=== PATIENT | female | born 1995 | race Caucasian/White ===

== ENCOUNTER 2021-10-30 17:45 | Inpatient (IN) ==
[2021-10-30 18:54] LABS: Hematocrit (blood only) 37.2 % (37-47); Hemoglobin 12.8 g/dL (12.0-16.0); Mean Corpuscular Hemoglobin 30.2 pg (25-34); Mean Corpuscular Volume 87.7 fL (80-100); Mean Platelet Volume 10.7 fL (7.4-10.4); Platelet Count 237 K/uL (130-400); RDW Coefficient of Variation 13.4 % (11.5-14.5); RDW Standard Deviation 42.6 fL (36.4-46.3); Red Blood Count 4.24 M/uL (4.2-5.4); White Blood Count 13.62 K/uL (4.8-10.8)
[2021-10-30 19:17] LABS: Est GFR (African American) 141.7 ml/min; Est GFR (Non-African American) 122.3 ml/min
[2021-10-30] MEDS ORDERED: OXYTOCIN 30 UNITS/500 ML BAG IV PRN ×2 (19:25→19:29)
[2021-10-30 19:36] LABS: Mean Corpuscular Hgb Conc 34.4 g/dL (32-36)
--- NOTE | 2021-10-30 19:36 | History & Physical Report ---
Date of Service October 30, 2021 Assessment & Plan (1) Supervision of normal intrauterine in primigravida: (2) Gestational HTN: Plan: 25-year-old at 39 weeks 2 days gestational age. induction labor for gestational hypertension diagnosed today 1. Fetus: Cat 1 2. Labor: Will place cervical naik. Pitocin per regular protocol 3. GBS negative 4. gHTN. Negative eval for preeclampsia. Will continue to monitor. 5. Hx of PE: SCDs in labor. Restart Lovenox 12-24 hours post delivery and continue for 6 weeks History of Present Illness Primary Care Provider: Silvana Delaney MD 25-year-old at 39w2d gestational age presents for decreased movement. During her evaluation for decreased movement there was noted be reactive NST however blood pressures were noted to be elevated initially in severe range then trended down to a mild range blood pressure elevation. Preeclampsia labs were negative patient denying any preeclampsia symptoms. Discussed the findings of elevated blood pressure at term and recommended the patient stay for induction of labor for gestational hypertension. Patient was agreeable to plan. otherwise complicated by history of pulmonary embolus on OCPs. Patient is planned to continue Lovenox for 6 weeks and has been on heparin since 36 weeks with last dose this morning at 7:00 a.m. OB Labs: Blood Type O Negative 03/30/21 Antibody Screen NEGATIVE 08/18/21 Hemoglobin 13.0 g/dL (12.0-16.0) 09/29/21 Hematocrit 37.7 % (37-47) 09/29/21 Mean Corpuscular Volume 87.5 fL (80-100) 09/29/21 Platelet Count 284 K/uL (130-400) 09/29/21 Rubella IgG Antibody Immune (Immune) 03/30/21 Rapid Plasma Reagin Nonreactive (Nonreactive) 03/30/21 Hepatitis B Surface Antigen Neg (Neg) 03/30/21 HIV (1&2) Ab and P24 Ag, 4th Gener Neg (Neg) 03/30/21 Glucose 1 Hour 50 gm Load 158 mg/dl (70-130) H 06/02/21 Maternal Serum Alpha Fetoprotein 45.2 ng/mL 06/02/21 OB Optional Labs: Chlamydia trachomatis RNA NOT DETECTED (NOT DETECTED) 03/30/21 Neisseria gonorrhoeae RNA NOT DETECTED (NOT DETECTED) 03/30/21 Thyroid Stimulating Hormone (TSH) 0.921 uIu/ml (0.300-4.500) 04/06/20 Alpha Fetoprotein Triple Screen SEE NOTE 06/02/21 Labs Reviewed: neg cf/sma--[facility] low risk panorama--[facility] Allergies Allergy/AdvReac Type Severity Reaction Status Date / Time Estrogens Allergy Verified 10/27/21 15:05 Home Medications Medication Instructions Recorded Confirmed Type prenat.vits,brayden,[id number] 1 tab PO DAILY 03/21/21 10/30/21 History aspirin 81 mg tablet,delayed 81 mg PO DAILY 08/18/21 10/30/21 History release heparin (porcine) 5,000 unit/mL 5,000 unit SUBCUT Q12H 10/13/21 10/30/21 History injection solution Patient History Medical History (Updated 10/30/21 @ 20:25 by Francisco Javier Peña MD) ACL tear Reconstruction of left. Asthma COVID 05/16/21 Hypertension affecting Infertility Conceived on Metformin and Femara Irregular heart beat Pulmonary embolism 2019 Lovenox 13-35 weeks Heparin 35 weeks to currently Family History (Updated 03/21/21 @ 10:03 by Shannan Carias) Mother Cancer Grandmother (Maternal) Cancer Grandfather (Maternal) Cancer Social History (Updated 10/30/21 @ 18:02 by Beth Aburto, RN) Smoking Status: Never smoker Hx Alcohol Use: No Hx Substance Use: No Preferred Language: [place] Communication Ability: Effective Visual Impairment: No Limitations Switchboard Clerk Required: No Beliefs That Will Affect Care: None marital status: marital status details: Sarkis (25) [phone] Current Living Situation: Spouse Current Living Situation Comment: lives with spouse 2 dogs. current occupational status: employed current occupation: [employer] Other Information That Helps Us Care for You: No Feels Safe at Home: Yes Safety Concerns: Feels Safe At This Time Assistive Devices: None Physical Exam Genitourinary: OB Exam Abdomen: + vertex (By US) Manual OB Exam: + cervical dilation fingertip, + cervical effacement 50% and + station high OB Exam Monitor Tracing: + external FHT monitor used, + external uterine monitor used, + category I and + normal FHT variability; no early decelerations present, no late decelerations present and no variable decelerations Results & Data ([facility]) Vital Signs (Past 12 Hours) Vital Signs Temp Pulse Resp BP 10/30/21 18:59 36.7 C 105 H 20 145/98 H 10/30/21 18:28 108 H 144/92 H 10/30/21 18:18 102 H 160/91 H 10/30/21 18:12 100 H 18 166/87 H 10/30/21 18:06 36.8 C 102 H 18 166/96 H 10/30/21 18:03 18 10/30/21 17:55 113 H 20 185/110 H Coding Level of Care Code None Diagnoses Supervision of normal intrauterine in primigravida Z34.00 Gestational HTN O13.9
[2021-10-30 20:36] LABS: Protein Creatinine Ratio Urine 3.5 (0-0.2); Total Protein Urine Random 324.8 mg/dl (0-11.9)
[2021-10-30] MEDS: LACTATED RINGER'S 1,000 ML IV PRN (22:06)
[2021-10-30] MEDS: ACETAMINOPHEN 325 MG TAB PO PRN (22:11)
[2021-10-30] MEDS ORDERED: MAG SULFATE 4GM BOLUS FROM BAG IV ONE (23:57)
[2021-10-30] MEDS ORDERED: LABETALOL HCL IV 5 MG/ML 20ML IV STA (23:57)
[2021-10-31] MEDS: MAGNESIUM SULFATE / WTR 40 GM/1,000 ML BAG IV SCH ×2 (00:18→17:06)
[2021-10-31] MEDS ORDERED: ePHEDrine sulfate 50 MG/ML AMP ONE (02:07)
[2021-10-31] MEDS ORDERED: fentaNYL citrate 100 MCG/2 ML VIAL ONE (02:07)
[2021-10-31] MEDS ORDERED: fentaNYL 2MCG/ML ROPIVACAINE 1.25MG/ML 100 ML BAG EPI ONE (02:08)
[2021-10-31] MEDS ORDERED: SODIUM CHLORIDE 0.9% INJ 10 ML VIAL ONE (02:08)
[2021-10-31] MEDS ORDERED: BUPIVACAINE 0.25% 30 ML VIAL ONE (02:08)
--- NOTE | 2021-10-31 02:11 | Labor Progress Brief Note ---
Date of Service October 31, 2021 Subjective Reason For Note: Routine Evaluation Denies PIH symptoms Assessment & Plan (1) Supervision of normal intrauterine in primigravida: (2) Gestational HTN: (3) Pre-eclampsia, severe, third trimester: Plan: 25-year-old at 39 weeks 3 days gestational age. induction labor for gestational hypertension diagnosed today 1. Fetus: Cat 1 2. Labor: Progressing well. SROM for clr. Pitocin per regular protocol 3. GBS negative 4. Severe PreE by BP criteria. Started Mg. Labs in AM 5. Hx of PE: SCDs in labor. Restart Lovenox 12-24 hours post delivery and continue for 6 weeks Admission and Anticipated Discharge Date Admission Date: October 30, 2021 Physical Exam Genitourinary: Manual OB Exam: + cervical dilation 4 cm, + cervical effacement 70% and + station high OB Exam Monitor Tracing: + external FHT monitor used, + external uterine monitor used, + category I and + normal FHT variability Results & Data ([facility]) Vital Signs (Past 12 Hours) Vital Signs Temp Pulse Resp BP Pulse Ox 10/31/21 02:04 101 H 164/85 H 10/31/21 02:02 104 H 98 10/31/21 01:57 98 H 97 10/31/21 01:52 97 H 98 10/31/21 01:47 103 H 152/79 H 97 10/31/21 01:42 105 H 97 10/31/21 01:37 100 H 98 10/31/21 01:32 104 H 20 164/88 H 98 10/31/21 01:27 99 H 98 10/31/21 01:22 97 H 98 10/31/21 01:17 104 H 143/74 H 97 10/31/21 01:12 110 H 97 10/31/21 01:07 101 H 97 10/31/21 01:02 115 H 142/75 H 97 10/31/21 00:57 106 H 96 10/31/21 00:52 100 H 95 10/31/21 00:47 102 H 147/80 H 96 10/31/21 00:42 103 H 96 10/31/21 00:37 106 H 98 10/31/21 00:35 18 10/31/21 00:32 106 H 96 10/31/21 00:30 100 H 136/79 10/31/21 00:27 102 H 96 10/31/21 00:24 96 H 135/76 10/31/21 00:22 104 H 97 10/31/21 00:19 91 H 134/74 10/31/21 00:13 103 H 142/80 H 10/30/21 23:47 95 H 169/86 H 10/30/21 23:16 91 H 161/85 H 10/30/21 22:47 36.6 C 90 18 164/87 H 10/30/21 21:54 105 H 157/104 H 10/30/21 21:25 100 H 143/83 H 10/30/21 20:54 93 H 145/85 H 10/30/21 20:20 90 153/86 H 10/30/21 20:17 83 164/97 H 10/30/21 19:41 111 H 159/95 H 10/30/21 19:30 108 H 177/96 H 10/30/21 18:59 36.7 C 105 H 20 145/98 H 10/30/21 18:28 108 H 144/92 H 10/30/21 18:18 102 H 160/91 H 10/30/21 18:12 100 H 18 166/87 H 10/30/21 18:06 36.8 C 102 H 18 166/96 H 10/30/21 18:03 18 10/30/21 17:55 113 H 20 185/110 H Coding Level of Care Code None Diagnoses Supervision of normal intrauterine in primigravida Z34.00 Gestational HTN O13.9 Pre-eclampsia, severe, third trimester O14.13
[2021-10-31] MEDS ORDERED: ePHEDrine sulfate 50 MG/ML AMP IV PRN ×2 (02:59→19:59)
[2021-10-31] MEDS ORDERED: NALOXONE HCL 1 MG in SODIUM CHLORIDE 0.9% 1000ML 1,000 ML IV PRN ×2 (02:59→19:59)
[2021-10-31] MEDS ORDERED: diphenhydrAMINE 50 MG/ML VIAL IV PRN ×2 (02:59→19:59)
[2021-10-31] MEDS ORDERED: NALBUPHINE HCL INJ 10 MG/ML AMP IV PRN ×2 (02:59→19:59)
[2021-10-31] MEDS ORDERED: NALOXONE HCL 0.4 MG/1 ML VIAL/CARP IV PRN ×2 (02:59→19:59)
[2021-10-31] MEDS ORDERED: ONDANSETRON INJ 2 MG/ML 2 ML VIAL IV PRN ×2 (02:59→19:59)
--- NOTE | 2021-10-31 03:01 | Anesthesiology Consultation ---
Date of Service October 31, 2021 Assessment & Plan Chart Review Chart Review: Patient NOT seen in Pre Admission Testing and Acceptable Risk for Labor Epidural Consults Requested none ASA ASA3 Proposed Anesthesia Anesthesia Type: Labor Epidural and CSE Risk / Benefits Reviewed With: PT / POA / Parent / Guardian, Accepts Plan and Informed Consent Obtained History Surgery The patient last took heparin at 0730 on 10/30/2021. Height/Weight Height: 5 ft 3 in Weight: 106.141 kg Allergies Allergy/AdvReac Type Severity Reaction Status Date / Time Estrogens Allergy Verified 10/27/21 15:05 Medications Home Medications Medication Instructions Recorded Confirmed Last Taken prenat.vits,brayden,amp-qfjv-aaxft 1 tab PO DAILY 03/21/21 10/30/21 10/30/21 aspirin 81 mg tablet,delayed 81 mg PO DAILY 08/18/21 10/30/21 10/30/21 release heparin (porcine) 5,000 unit/mL 5,000 unit SUBCUT Q12H 10/13/21 10/30/21 10/30/21 07:30 injection solution Active Medications Generic Name Dose Route Start Last Admin Trade Name Freq PRN Reason Stop Dose Admin Acetaminophen 650 mg 10/30/21 18:26 10/30/21 22:11 Acetaminophen 325 Mg Tab PO 11/29/21 18:25 650 mg Q4H PRN Administration Pain or Fever Lactated Ringer's 1,000 mls @ 125 mls/hr 10/30/21 19:25 10/31/21 00:38 Lr IV 11/01/21 19:24 75 mls/hr .Q8H PRN Infusion L&D Protocol Protocol Oxytocin 30 units in 500 mls @ 10 mls/hr 10/30/21 19:29 10/31/21 01:20 Pitocin IV 11/01/21 19:28 0.6 units/hr .Q24H PRN 10 mls/hr Labor Induction/Augmentation Titration Protocol 0.6 UNITS/HR Magnesium Sulfate 40 gm in 1,000 mls @ 50 mls/hr 10/30/21 23:45 10/31/21 00:38 Magnesium Sulfate / Wtr IV 11/29/21 23:44 2 g/hr .Q20H HEVER 50 mls/hr Infusion 2 G/HR NPO Date Last Intake of Fluids: 10/31/21 Time Last Intake of Fluids: 02:00 Date Last Intake of Solids: 10/30/21 Time Last Intake of Solids: 14:00 Past Medical History Medical History ACL tear Reconstruction of left. Asthma COVID 05/16/21 Hypertension affecting Infertility Conceived on Metformin and Femara Irregular heart beat Pulmonary embolism 2019 Lovenox 13-35 weeks Heparin 35 weeks to currently Exercise / Class Metabolic Activity II 4-5 Yardwork/Stairs/Walk up hill Past Family History Family History Mother Cancer Grandmother (Maternal) Cancer Grandfather (Maternal) Cancer Past Anesthesia History No Hx of Anesthesia Complications and No Family Hx of Anesthesia Complications History of PONV No Hx of PONV and No Hx of Motion Sickness Social History Smoking Status: Never smoker Hx Alcohol Use: No Hx Substance Use: No Review of Systems no chest pain or sob Physical Exam Vital Signs Last Vital Signs Temp 36.6 C 10/31/21 02:21 Pulse 84 10/31/21 02:57 Resp 18 10/31/21 02:21 BP 117/64 10/31/21 02:47 Pulse Ox 98 10/31/21 02:57 ENMT Mouth: no TMJ abnormality Thyromental Distance: > or= 3.5 Finger Breadths Mallampati Class: II Neck normal visual inspection Respiratory normal respiratory effort Auscultation: lungs clear to auscultation bilaterally Cardiovascular Rate/Rhythm: regular rate and regular rhythm Musculoskeletal Spine: normal cervical ROM Neurologic moves all extremities Psychiatric Orientation: alert and oriented x 3 Testing Laboratory Results 10/30/21 18:46 10/30/21 18:46 Blood Type O Negative 10/30/21 18:46 Antibody Screen NEGATIVE 10/30/21 18:46
[2021-10-31 06:54] LABS: Hematocrit (blood only) 37.7 % (37-47); Hemoglobin 12.6 g/dL (12.0-16.0); Mean Corpuscular Hemoglobin 29.4 pg (25-34); Mean Corpuscular Hgb Conc 33.4 g/dL (32-36); Mean Corpuscular Volume 88.1 fL (80-100); Mean Platelet Volume 10.5 fL (7.4-10.4); Platelet Count 211 K/uL (130-400); RDW Coefficient of Variation 13.5 % (11.5-14.5); Red Blood Count 4.28 M/uL (4.2-5.4)
[2021-10-31 07:14] LABS: Albumin Globulin Ratio 1.2 (0.9-2); Albumin Level 3.3 gm/dl (3.4-5.0); BUN Creatinine Ratio 18.3 (10-20); Bilirubin,Total 0.3 mg/dl (0.2-1.0); Creatinine Clr Calc Pharmacy 138.8 ml/min; Est GFR (African American) 135.3 ml/min; Est GFR (Non-African American) 116.7 ml/min; Globulin 2.8 gm/dl (2.5-4.0); Magnesium Therapeutic L&D Only 4.9 mg/dL (4.0-8.0); Total Protein 6.1 gm/dl (6.0-8.3)
[2021-10-31] MEDS: ACETAMINOPHEN 325 MG TAB PO PRN (07:57)
--- NOTE | 2021-10-31 09:18 | Labor Progress Brief Note ---
Date of Service October 31, 2021 Subjective Comfortable with epidural Recent SOLER treated with tylenol, pt unsure if any effect yet No vision change, RUQ pain or edema changes Seen with RN Elba at bedside Pit recently increased to 6 MVU calculated at 235 MVU, first time adequate, at 0730 Assessment & Plan (1) Pre-eclampsia, severe, third trimester: Plan: Magnesium infusing BP acceptable Labs reviewed Labor induction ongoing I noted my concern for minimal if any progress, and possible narrow pelvis, with patient this morning. Not yet at adequate trial of labor and she desires continuation of IOL at this time. (2) Pulmonary embolism: Plan: Anticoagulation and SCDs Admission and Anticipated Discharge Date Admission Date: October 30, 2021 Physical Exam Neurologic: DTR 1+ patella, SCD's opened to allow exam then replaced Genitourinary: Will say cervical exam unchanged from prior. Molding noted and station high. FSE, IUPC remain in place. [place] with ctx Q4min but 80mvu each. Pit @ 6 Clear fluid FHT Cat 1 Magnesium running Koch in situ Results & Data ([facility]) Vital Signs (Past 12 Hours) Vital Signs Temp Pulse Resp BP Pulse Ox 10/31/21 09:12 113 H 97 10/31/21 09:07 104 H 97 10/31/21 09:06 106 H 141/81 H 10/31/21 09:02 106 H 97 10/31/21 08:57 106 H 98 10/31/21 08:52 122 H 98 10/31/21 08:51 111 H 143/84 H 10/31/21 08:47 112 H 98 10/31/21 08:42 112 H 96 10/31/21 08:37 115 H 98 10/31/21 08:36 112 H 157/85 H 10/31/21 08:32 118 H 97 10/31/21 08:27 111 H 98 10/31/21 08:22 111 H 98 10/31/21 08:21 111 H 144/87 H 10/31/21 08:17 117 H 97 10/31/21 08:12 116 H 98 10/31/21 08:07 119 H 97 10/31/21 08:06 116 H 144/84 H 10/31/21 08:02 113 H 98 10/31/21 07:57 110 H 97 10/31/21 07:52 113 H 98 10/31/21 07:51 117 H 137/75 10/31/21 07:47 119 H 98 10/31/21 07:42 110 H 97 10/31/21 07:37 105 H 97 10/31/21 07:36 107 H 150/86 H 10/31/21 07:32 107 H 97 10/31/21 07:30 98.2 F 20 10/31/21 07:27 114 H 98 10/31/21 07:22 104 H 98 10/31/21 07:21 107 H 144/84 H 10/31/21 07:17 111 H 98 10/31/21 07:12 114 H 98 10/31/21 07:07 126 H 142/86 H 98 10/31/21 07:02 103 H 96 10/31/21 07:00 16 10/31/21 06:57 103 H 95 10/31/21 06:52 105 H 96 10/31/21 06:51 102 H 144/79 H 10/31/21 06:47 103 H 96 10/31/21 06:42 104 H 96 10/31/21 06:37 98 H 96 10/31/21 06:36 100 H 143/75 H 10/31/21 06:32 98 H 96 10/31/21 06:30 16 10/31/21 06:27 98 H 97 10/31/21 06:25 16 10/31/21 06:22 96 H 136/74 98 10/31/21 06:21 101 H 87 L 10/31/21 06:17 83 96 10/31/21 06:13 81 92 10/31/21 06:12 79 96 10/31/21 06:10 98.1 F 10/31/21 06:07 91 H 96 10/31/21 06:06 94 H 137/67 10/31/21 06:02 95 H 96 10/31/21 06:00 16 10/31/21 05:57 96 H 94 10/31/21 05:52 91 H 96 10/31/21 05:51 95 H 137/73 10/31/21 05:47 93 H 97 10/31/21 05:42 99 H 98 10/31/21 05:37 97 H 96 10/31/21 05:36 100 H 138/68 10/31/21 05:32 97 H 96 10/31/21 05:30 16 10/31/21 05:27 102 H 95 10/31/21 05:22 94 H 135/70 97 10/31/21 05:17 97 H 95 10/31/21 05:13 97 H 94 10/31/21 05:12 97 H 95 10/31/21 05:07 92 H 96 10/31/21 05:06 91 H 126/62 10/31/21 05:02 94 H 96 10/31/21 04:57 92 H 96 10/31/21 04:52 93 H 96 10/31/21 04:51 96 H 121/61 10/31/21 04:47 98 H 96 10/31/21 04:42 93 H 96 10/31/21 04:37 86 96 10/31/21 04:36 86 106/56 L 10/31/21 04:32 87 96 10/31/21 04:31 87 94 10/31/21 04:30 16 10/31/21 04:27 86 97 10/31/21 04:22 86 96 10/31/21 04:21 91 H 117/58 L 10/31/21 04:17 88 96 10/31/21 04:15 16 10/31/21 04:12 86 95 10/31/21 04:07 85 96 10/31/21 04:05 97.9 F 86 16 117/60 10/31/21 04:02 81 96 10/31/21 04:00 78 16 118/62 10/31/21 03:57 77 98 10/31/21 03:56 83 18 115/58 L 10/31/21 03:52 69 100 10/31/21 03:51 81 16 118/58 L 10/31/21 03:47 60 100 10/31/21 03:45 75 18 102/57 L 10/31/21 03:42 66 16 98/54 L 100 10/31/21 03:40 65 93 10/31/21 03:37 85 98 10/31/21 03:36 68 16 103/56 L 10/31/21 03:32 49 L 97 10/31/21 03:30 64 16 116/62 10/31/21 03:27 64 115/56 L 98 10/31/21 03:26 59 L 115/58 L 10/31/21 03:23 100 H 18 138/74 10/31/21 03:22 89 97 10/31/21 03:20 88 142/77 H 10/31/21 03:17 73 97 10/31/21 03:12 55 L 98 10/31/21 03:07 77 98 10/31/21 03:02 95 H 128/70 97 10/31/21 02:57 84 98 10/31/21 02:52 87 95 10/31/21 02:47 71 117/64 96 10/31/21 02:42 61 97 10/31/21 02:37 97 H 96 10/31/21 02:32 99 H 133/85 96 10/31/21 02:29 99 H 93 10/31/21 02:27 101 H 96 10/31/21 02:23 89 92 10/31/21 02:22 86 94 10/31/21 02:21 97.9 F 18 10/31/21 02:18 104 H 132/87 10/31/21 02:17 97 H 97 10/31/21 02:12 98 H 98 10/31/21 02:07 97 H 97 10/31/21 02:04 101 H 164/85 H 10/31/21 02:02 104 H 98 10/31/21 01:57 98 H 97 10/31/21 01:52 97 H 98 10/31/21 01:47 103 H 152/79 H 97 10/31/21 01:42 105 H 97 10/31/21 01:37 100 H 98 10/31/21 01:32 104 H 20 164/88 H 98 10/31/21 01:27 99 H 98 10/31/21 01:22 97 H 98 10/31/21 01:17 104 H 143/74 H 97 10/31/21 01:12 110 H 97 10/31/21 01:07 101 H 97 10/31/21 01:02 115 H 142/75 H 97 10/31/21 00:57 106 H 96 10/31/21 00:52 100 H 95 10/31/21 00:47 102 H 147/80 H 96 10/31/21 00:42 103 H 96 10/31/21 00:37 106 H 98 10/31/21 00:35 18 10/31/21 00:32 106 H 96 10/31/21 00:30 100 H 136/79 10/31/21 00:27 102 H 96 10/31/21 00:24 96 H 135/76 10/31/21 00:22 104 H 97 10/31/21 00:19 91 H 134/74 10/31/21 00:13 103 H 142/80 H 10/30/21 23:47 95 H 169/86 H 10/30/21 23:16 91 H 161/85 H 10/30/21 22:47 97.9 F 90 18 164/87 H 10/30/21 21:54 105 H 157/104 H 10/30/21 21:25 100 H 143/83 H Coding Level of Care Code None Diagnoses Pre-eclampsia, severe, third trimester O14.13 Pulmonary embolism I26.99
[2021-10-31] MEDS: LACTATED RINGER'S 1,000 ML IV PRN (09:58)
[2021-10-31] MEDS: fentaNYL 2MCG/ML ROPIVACAINE 1.25MG/ML 100 ML BAG EPI PRN ×2 (12:20→17:58)
[2021-10-31 13:24] LABS: Hematocrit (blood only) 35.8 % (37-47); Hemoglobin 12.1 g/dL (12.0-16.0); Mean Corpuscular Hemoglobin 30.1 pg (25-34); Mean Corpuscular Hgb Conc 33.8 g/dL (32-36); Mean Corpuscular Volume 89.1 fL (80-100); Mean Platelet Volume 10.4 fL (7.4-10.4); Platelet Count 218 K/uL (130-400); RDW Coefficient of Variation 13.7 % (11.5-14.5); RDW Standard Deviation 44.2 fL (36.4-46.3); Red Blood Count 4.02 M/uL (4.2-5.4); White Blood Count 18.14 K/uL (4.8-10.8)
--- NOTE | 2021-10-31 13:56 | Labor Progress Brief Note ---
Date of Service October 31, 2021 Subjective Patient feeling more pressure "in her rectum" Assessment & Plan (1) Pre-eclampsia, severe, third trimester: Plan: Significant cervical change noted (I did not feel the initial exam was truly 4cm, but that had already been the finding of the prior examiner; in my opinion patient has changed from what I'd have called /-3 at my first check to now /-2) Molding still present, but with cervical change patient desires to continue IOL. Pit @ 12 currently. SCD's on and h/o PE plus current severe PreE noted. Long course of labor does have risks, pt and FOB aware. Admission and Anticipated Discharge Date Admission Date: October 30, 2021 Physical Exam Genitourinary: FHT Cat 1 [place] Q2-4 MVU adequate Cvx /-2 LOF clear with bloody show and mucus Molding remains present Results & Data ([facility]) Vital Signs (Past 12 Hours) Vital Signs Temp Pulse Resp BP Pulse Ox 10/31/21 13:47 92 H 99 10/31/21 13:42 91 H 95 10/31/21 13:37 90 95 10/31/21 13:36 98 H 125/72 10/31/21 13:32 90 97 10/31/21 13:30 20 10/31/21 13:27 93 H 98 10/31/21 13:22 97.9 F 89 20 96 10/31/21 13:21 84 118/65 10/31/21 13:17 85 98 10/31/21 13:12 83 97 10/31/21 13:07 80 126/72 96 10/31/21 13:02 75 96 10/31/21 12:57 78 96 10/31/21 12:52 78 96 10/31/21 12:51 82 130/69 10/31/21 12:47 83 95 10/31/21 12:42 83 97 10/31/21 12:37 85 128/72 96 10/31/21 12:32 85 96 10/31/21 12:30 18 10/31/21 12:27 89 98 10/31/21 12:22 93 H 97 10/31/21 12:21 81 128/62 10/31/21 12:17 80 98 10/31/21 12:12 82 97 10/31/21 12:07 96 H 95 10/31/21 12:06 86 127/62 10/31/21 12:02 86 95 10/31/21 11:57 86 95 10/31/21 11:52 81 96 10/31/21 11:51 82 128/65 10/31/21 11:47 90 97 10/31/21 11:42 90 96 10/31/21 11:37 79 124/60 96 10/31/21 11:32 84 96 10/31/21 11:30 20 10/31/21 11:27 87 96 10/31/21 11:22 95 H 96 10/31/21 11:21 102 H 134/71 10/31/21 11:17 97 H 95 10/31/21 11:12 96 H 95 10/31/21 11:07 109 H 137/75 96 10/31/21 11:02 104 H 97 10/31/21 10:57 108 H 97 10/31/21 10:52 97 H 131/75 95 10/31/21 10:47 103 H 94 10/31/21 10:42 102 H 95 10/31/21 10:37 100 H 95 10/31/21 10:36 103 H 130/69 10/31/21 10:32 108 H 95 10/31/21 10:30 20 10/31/21 10:27 102 H 94 10/31/21 10:22 100 H 95 10/31/21 10:21 97 H 138/70 10/31/21 10:17 101 H 95 10/31/21 10:12 107 H 95 10/31/21 10:07 100 H 96 10/31/21 10:06 101 H 138/75 10/31/21 10:02 98 H 97 10/31/21 09:57 102 H 96 10/31/21 09:52 102 H 97 10/31/21 09:51 111 H 144/79 H 10/31/21 09:47 111 H 97 10/31/21 09:42 103 H 95 10/31/21 09:37 103 H 95 10/31/21 09:36 105 H 140/76 10/31/21 09:32 107 H 97 10/31/21 09:30 98.1 F 20 10/31/21 09:27 105 H 96 10/31/21 09:22 102 H 96 10/31/21 09:21 108 H 131/76 10/31/21 09:17 112 H 96 10/31/21 09:12 113 H 97 10/31/21 09:07 104 H 97 10/31/21 09:06 106 H 141/81 H 10/31/21 09:02 106 H 97 10/31/21 08:57 106 H 98 10/31/21 08:52 122 H 98 10/31/21 08:51 111 H 143/84 H 10/31/21 08:47 112 H 98 10/31/21 08:42 112 H 96 10/31/21 08:37 115 H 98 10/31/21 08:36 112 H 157/85 H 10/31/21 08:32 118 H 97 10/31/21 08:30 20 10/31/21 08:27 111 H 98 10/31/21 08:22 111 H 98 10/31/21 08:21 111 H 144/87 H 10/31/21 08:17 117 H 97 10/31/21 08:12 116 H 98 10/31/21 08:07 119 H 97 10/31/21 08:06 116 H 144/84 H 10/31/21 08:02 113 H 98 10/31/21 07:57 110 H 97 10/31/21 07:52 113 H 98 10/31/21 07:51 117 H 137/75 10/31/21 07:47 119 H 98 10/31/21 07:42 110 H 97 10/31/21 07:37 105 H 97 10/31/21 07:36 107 H 150/86 H 10/31/21 07:32 107 H 97 10/31/21 07:30 98.2 F 20 10/31/21 07:27 114 H 98 10/31/21 07:22 104 H 98 10/31/21 07:21 107 H 144/84 H 10/31/21 07:17 111 H 98 10/31/21 07:12 114 H 98 10/31/21 07:07 126 H 142/86 H 98 10/31/21 07:02 103 H 96 10/31/21 07:00 16 10/31/21 06:57 103 H 95 10/31/21 06:52 105 H 96 10/31/21 06:51 102 H 144/79 H 10/31/21 06:47 103 H 96 10/31/21 06:42 104 H 96 10/31/21 06:37 98 H 96 10/31/21 06:36 100 H 143/75 H 10/31/21 06:32 98 H 96 10/31/21 06:30 16 10/31/21 06:27 98 H 97 10/31/21 06:25 16 10/31/21 06:22 96 H 136/74 98 10/31/21 06:21 101 H 87 L 10/31/21 06:17 83 96 10/31/21 06:13 81 92 10/31/21 06:12 79 96 10/31/21 06:10 98.1 F 10/31/21 06:07 91 H 96 10/31/21 06:06 94 H 137/67 10/31/21 06:02 95 H 96 10/31/21 06:00 16 10/31/21 05:57 96 H 94 10/31/21 05:52 91 H 96 10/31/21 05:51 95 H 137/73 10/31/21 05:47 93 H 97 10/31/21 05:42 99 H 98 10/31/21 05:37 97 H 96 10/31/21 05:36 100 H 138/68 10/31/21 05:32 97 H 96 10/31/21 05:30 16 10/31/21 05:27 102 H 95 10/31/21 05:22 94 H 135/70 97 10/31/21 05:17 97 H 95 10/31/21 05:13 97 H 94 10/31/21 05:12 97 H 95 10/31/21 05:07 92 H 96 10/31/21 05:06 91 H 126/62 10/31/21 05:02 94 H 96 10/31/21 04:57 92 H 96 10/31/21 04:52 93 H 96 10/31/21 04:51 96 H 121/61 10/31/21 04:47 98 H 96 10/31/21 04:42 93 H 96 10/31/21 04:37 86 96 10/31/21 04:36 86 106/56 L 10/31/21 04:32 87 96 10/31/21 04:31 87 94 10/31/21 04:30 16 10/31/21 04:27 86 97 10/31/21 04:22 86 96 10/31/21 04:21 91 H 117/58 L 10/31/21 04:17 88 96 10/31/21 04:15 16 10/31/21 04:12 86 95 10/31/21 04:07 85 96 10/31/21 04:05 97.9 F 86 16 117/60 10/31/21 04:02 81 96 10/31/21 04:00 78 16 118/62 10/31/21 03:57 77 98 10/31/21 03:56 83 18 115/58 L 10/31/21 03:52 69 100 10/31/21 03:51 81 16 118/58 L 10/31/21 03:47 60 100 10/31/21 03:45 75 18 102/57 L 10/31/21 03:42 66 16 98/54 L 100 10/31/21 03:40 65 93 10/31/21 03:37 85 98 10/31/21 03:36 68 16 103/56 L 10/31/21 03:32 49 L 97 10/31/21 03:30 64 16 116/62 10/31/21 03:27 64 115/56 L 98 10/31/21 03:26 59 L 115/58 L 10/31/21 03:23 100 H 18 138/74 10/31/21 03:22 89 97 10/31/21 03:20 88 142/77 H 10/31/21 03:17 73 97 10/31/21 03:12 55 L 98 10/31/21 03:07 77 98 10/31/21 03:02 95 H 128/70 97 10/31/21 02:57 84 98 10/31/21 02:52 87 95 10/31/21 02:47 71 117/64 96 10/31/21 02:42 61 97 10/31/21 02:37 97 H 96 10/31/21 02:32 99 H 133/85 96 10/31/21 02:29 99 H 93 10/31/21 02:27 101 H 96 10/31/21 02:23 89 92 10/31/21 02:22 86 94 10/31/21 02:21 97.9 F 18 10/31/21 02:18 104 H 132/87 10/31/21 02:17 97 H 97 10/31/21 02:12 98 H 98 10/31/21 02:07 97 H 97 10/31/21 02:04 101 H 164/85 H 10/31/21 02:02 104 H 98 10/31/21 01:57 98 H 97 Coding Level of Care Code None Diagnoses Pre-eclampsia, severe, third trimester O14.13
[2021-10-31] MEDS ORDERED: NURSING L&D Epidural Breakthrough Pain Update ONE (14:05)
--- NOTE | 2021-10-31 17:13 | Labor Progress Brief Note ---
Date of Service October 31, 2021 Subjective Patient feels urge to push and is breathing through contractions despite epidural Assessment & Plan (1) Pre-eclampsia, severe, third trimester: Plan: Patient denies SOLER or other preeclampsia symptoms at this time. Labor progress again seen between my last exam and this one, though again, molding remains significant. Labs ordered for 1pm included CBC and CMP. Lab draw was done at the appointed time, however only a CBC was done; the CMP order remains in the chart, dated and timed for today at 1pm, but was not done or resulted. RN Elba calling lab now to ask that this be done. Platelets are normal and WBC in range expected for a laboring patient. Continues with Magnesium, Pitocin. Admission and Anticipated Discharge Date Admission Date: October 30, 2021 Physical Exam Genitourinary: /0 Gumball-like swelling at 12 o'clock on the cervical lip Molding again noted This once again represents significant change from my own last exam earlier this afternoon. FHT Cat 1 with +scalp stim accel during exam [place] Q2-4 Results & Data ([facility]) Vital Signs (Past 12 Hours) Vital Signs Temp Pulse Resp BP Pulse Ox 10/31/21 17:07 101 H 97 10/31/21 17:06 100 H 138/74 10/31/21 17:02 115 H 97 10/31/21 16:57 115 H 99 10/31/21 16:52 99 H 136/75 94 10/31/21 16:47 107 H 94 10/31/21 16:42 97 H 95 10/31/21 16:37 109 H 99 10/31/21 16:36 98 H 139/72 10/31/21 16:32 104 H 95 10/31/21 16:27 100 H 96 10/31/21 16:22 108 H 99 10/31/21 16:21 100 H 142/74 H 10/31/21 16:17 97 H 93 10/31/21 16:12 107 H 97 10/31/21 16:07 109 H 99 10/31/21 16:06 106 H 142/78 H 10/31/21 16:02 103 H 97 10/31/21 15:57 105 H 97 10/31/21 15:52 105 H 124/63 97 10/31/21 15:47 95 H 97 10/31/21 15:42 96 H 95 10/31/21 15:37 109 H 95 10/31/21 15:36 99 H 132/66 10/31/21 15:32 93 H 96 10/31/21 15:27 98 H 95 10/31/21 15:22 96 H 95 10/31/21 15:21 94 H 135/71 10/31/21 15:17 97 H 96 10/31/21 15:12 111 H 97 10/31/21 15:07 100 H 94 10/31/21 15:06 95 H 135/70 10/31/21 15:02 98 H 93 10/31/21 14:57 92 H 95 10/31/21 14:52 102 H 130/78 97 10/31/21 14:47 93 H 94 10/31/21 14:42 91 H 95 10/31/21 14:37 89 96 10/31/21 14:36 96 H 130/70 10/31/21 14:32 97 H 96 10/31/21 14:30 18 10/31/21 14:27 101 H 95 10/31/21 14:22 99 H 134/77 94 10/31/21 14:17 103 H 94 10/31/21 14:12 101 H 99 10/31/21 14:07 107 H 136/79 95 10/31/21 14:02 91 H 95 10/31/21 13:57 93 H 97 10/31/21 13:52 98 H 131/75 100 10/31/21 13:47 92 H 99 10/31/21 13:42 91 H 95 10/31/21 13:37 90 95 10/31/21 13:36 98 H 125/72 10/31/21 13:32 90 97 10/31/21 13:30 20 10/31/21 13:27 93 H 98 10/31/21 13:22 97.9 F 89 20 96 10/31/21 13:21 84 118/65 10/31/21 13:17 85 98 10/31/21 13:12 83 97 10/31/21 13:07 80 126/72 96 10/31/21 13:02 75 96 10/31/21 12:57 78 96 10/31/21 12:52 78 96 10/31/21 12:51 82 130/69 10/31/21 12:47 83 95 10/31/21 12:42 83 97 10/31/21 12:37 85 128/72 96 10/31/21 12:32 85 96 10/31/21 12:30 18 10/31/21 12:27 89 98 10/31/21 12:22 93 H 97 10/31/21 12:21 81 128/62 10/31/21 12:17 80 98 10/31/21 12:12 82 97 10/31/21 12:07 96 H 95 10/31/21 12:06 86 127/62 10/31/21 12:02 86 95 10/31/21 11:57 86 95 10/31/21 11:52 81 96 10/31/21 11:51 82 128/65 10/31/21 11:47 90 97 10/31/21 11:42 90 96 10/31/21 11:37 79 124/60 96 10/31/21 11:32 84 96 10/31/21 11:30 20 10/31/21 11:27 87 96 10/31/21 11:22 95 H 96 10/31/21 11:21 102 H 134/71 10/31/21 11:17 97 H 95 10/31/21 11:12 96 H 95 10/31/21 11:07 109 H 137/75 96 10/31/21 11:02 104 H 97 10/31/21 10:57 108 H 97 10/31/21 10:52 97 H 131/75 95 10/31/21 10:47 103 H 94 10/31/21 10:42 102 H 95 10/31/21 10:37 100 H 95 10/31/21 10:36 103 H 130/69 10/31/21 10:32 108 H 95 10/31/21 10:30 20 10/31/21 10:27 102 H 94 10/31/21 10:22 100 H 95 10/31/21 10:21 97 H 138/70 10/31/21 10:17 101 H 95 10/31/21 10:12 107 H 95 10/31/21 10:07 100 H 96 10/31/21 10:06 101 H 138/75 10/31/21 10:02 98 H 97 10/31/21 09:57 102 H 96 10/31/21 09:52 102 H 97 10/31/21 09:51 111 H 144/79 H 10/31/21 09:47 111 H 97 10/31/21 09:42 103 H 95 10/31/21 09:37 103 H 95 10/31/21 09:36 105 H 140/76 10/31/21 09:32 107 H 97 10/31/21 09:30 98.1 F 20 10/31/21 09:27 105 H 96 10/31/21 09:22 102 H 96 10/31/21 09:21 108 H 131/76 10/31/21 09:17 112 H 96 10/31/21 09:12 113 H 97 10/31/21 09:07 104 H 97 10/31/21 09:06 106 H 141/81 H 10/31/21 09:02 106 H 97 10/31/21 08:57 106 H 98 10/31/21 08:52 122 H 98 10/31/21 08:51 111 H 143/84 H 10/31/21 08:47 112 H 98 10/31/21 08:42 112 H 96 10/31/21 08:37 115 H 98 10/31/21 08:36 112 H 157/85 H 10/31/21 08:32 118 H 97 10/31/21 08:30 20 10/31/21 08:27 111 H 98 10/31/21 08:22 111 H 98 10/31/21 08:21 111 H 144/87 H 10/31/21 08:17 117 H 97 10/31/21 08:12 116 H 98 10/31/21 08:07 119 H 97 10/31/21 08:06 116 H 144/84 H 10/31/21 08:02 113 H 98 10/31/21 07:57 110 H 97 10/31/21 07:52 113 H 98 10/31/21 07:51 117 H 137/75 10/31/21 07:47 119 H 98 10/31/21 07:42 110 H 97 10/31/21 07:37 105 H 97 10/31/21 07:36 107 H 150/86 H 10/31/21 07:32 107 H 97 10/31/21 07:30 98.2 F 20 10/31/21 07:27 114 H 98 10/31/21 07:22 104 H 98 10/31/21 07:21 107 H 144/84 H 10/31/21 07:17 111 H 98 10/31/21 07:12 114 H 98 10/31/21 07:07 126 H 142/86 H 98 10/31/21 07:02 103 H 96 10/31/21 07:00 16 10/31/21 06:57 103 H 95 10/31/21 06:52 105 H 96 10/31/21 06:51 102 H 144/79 H 10/31/21 06:47 103 H 96 10/31/21 06:42 104 H 96 10/31/21 06:37 98 H 96 10/31/21 06:36 100 H 143/75 H 10/31/21 06:32 98 H 96 10/31/21 06:30 16 10/31/21 06:27 98 H 97 10/31/21 06:25 16 10/31/21 06:22 96 H 136/74 98 10/31/21 06:21 101 H 87 L 10/31/21 06:17 83 96 10/31/21 06:13 81 92 10/31/21 06:12 79 96 10/31/21 06:10 98.1 F 10/31/21 06:07 91 H 96 10/31/21 06:06 94 H 137/67 10/31/21 06:02 95 H 96 10/31/21 06:00 16 10/31/21 05:57 96 H 94 10/31/21 05:52 91 H 96 10/31/21 05:51 95 H 137/73 10/31/21 05:47 93 H 97 10/31/21 05:42 99 H 98 10/31/21 05:37 97 H 96 10/31/21 05:36 100 H 138/68 10/31/21 05:32 97 H 96 10/31/21 05:30 16 10/31/21 05:27 102 H 95 10/31/21 05:22 94 H 135/70 97 10/31/21 05:17 97 H 95 10/31/21 05:13 97 H 94 10/31/21 05:12 97 H 95 Coding Level of Care Code None Diagnoses Pre-eclampsia, severe, third trimester O14.13
[2021-10-31] MEDS ORDERED: OXYTOCIN 10 UNITS/ML 10ML VIAL ONE ×3 (18:49→18:52)
--- NOTE | 2021-10-31 18:50 | Labor Progress Brief Note ---
Date of Service October 31, 2021 Subjective Significant rectal pressure and pelvic pain with contractions despite epidural Assessment & Plan (1) Pre-eclampsia, severe, third trimester: Plan: Patient and FOB counseled on my opinion that further attempts at IOL are futile and my recommendation that we proceed to section. They agree. Consent process completed with line by line review of consent form, and all questions answered. Pitocin stopped. Per RN Elba at bedside, transition to new nurse shift is impending and will be completed prior to , as OR is also still in the process of being cleaned from prior delivery. FHT settled into a Cat 1 tracing with pitocin turned off. Delivery will be accomplished as soon as is feasible with nursing and OR availability. Admission and Anticipated Discharge Date Admission Date: October 30, 2021 Physical Exam Genitourinary: Cervix swollen circumferentially now, to an effective diameter of 6cm when it had been 8cm. Swelling approximates 80% effaced where it had been 90%. Molding remains present Station remains 0. FHT Cat 2 with variables during almost all contractions, and occasional late decels after some closely-spaced contractions. Scalp stimulation obtained during exam [place] Q2-4 Pit @ 12, turned off after this exam Results & Data ([facility]) Vital Signs (Past 12 Hours) Vital Signs Temp Pulse Resp BP Pulse Ox 10/31/21 18:42 108 H 97 10/31/21 18:37 108 H 98 10/31/21 18:36 109 H 159/88 H 10/31/21 18:32 110 H 96 10/31/21 18:27 115 H 97 10/31/21 18:22 105 H 99 10/31/21 18:17 105 H 95 10/31/21 18:12 89 97 10/31/21 18:07 93 H 98 10/31/21 18:06 100 H 140/75 10/31/21 18:02 105 H 95 10/31/21 17:57 92 H 95 10/31/21 17:52 94 H 97 10/31/21 17:51 113 H 109/85 10/31/21 17:47 110 H 98 10/31/21 17:42 98 H 93 10/31/21 17:37 101 H 93 10/31/21 17:36 99 H 147/69 H 10/31/21 17:32 97 H 94 10/31/21 17:30 18 04/19/22 17:27 98.1 F 109 H 96 10/31/21 17:22 100 H 95 10/31/21 17:21 96 H 144/70 H 10/31/21 17:20 94 H 89 L 10/31/21 17:17 96 H 93 10/31/21 17:12 95 H 95 10/31/21 17:07 101 H 97 10/31/21 17:06 100 H 138/74 10/31/21 17:02 115 H 97 10/31/21 16:57 115 H 99 10/31/21 16:52 99 H 136/75 94 10/31/21 16:47 107 H 94 10/31/21 16:42 97 H 95 10/31/21 16:37 109 H 99 10/31/21 16:36 98 H 139/72 10/31/21 16:32 104 H 95 10/31/21 16:27 100 H 96 10/31/21 16:22 108 H 99 10/31/21 16:21 100 H 142/74 H 10/31/21 16:17 97 H 93 10/31/21 16:12 107 H 97 10/31/21 16:07 109 H 99 10/31/21 16:06 106 H 142/78 H 10/31/21 16:02 103 H 97 10/31/21 15:57 105 H 97 10/31/21 15:52 105 H 124/63 97 10/31/21 15:47 95 H 97 10/31/21 15:42 96 H 95 10/31/21 15:37 109 H 95 10/31/21 15:36 99 H 132/66 10/31/21 15:32 93 H 96 10/31/21 15:27 98 H 95 10/31/21 15:24 98.2 F 10/31/21 15:22 96 H 95 10/31/21 15:21 94 H 135/71 10/31/21 15:17 97 H 96 10/31/21 15:12 111 H 97 10/31/21 15:07 100 H 94 10/31/21 15:06 95 H 135/70 10/31/21 15:02 98 H 93 10/31/21 14:57 92 H 95 10/31/21 14:52 102 H 130/78 97 10/31/21 14:47 93 H 94 10/31/21 14:42 91 H 95 10/31/21 14:37 89 96 10/31/21 14:36 96 H 130/70 10/31/21 14:32 97 H 96 10/31/21 14:30 18 10/31/21 14:27 101 H 95 10/31/21 14:22 99 H 134/77 94 10/31/21 14:17 103 H 94 10/31/21 14:12 101 H 99 10/31/21 14:07 107 H 136/79 95 10/31/21 14:02 91 H 95 10/31/21 13:57 93 H 97 10/31/21 13:52 98 H 131/75 100 10/31/21 13:47 92 H 99 10/31/21 13:42 91 H 95 10/31/21 13:37 90 95 10/31/21 13:36 98 H 125/72 10/31/21 13:32 90 97 10/31/21 13:30 20 10/31/21 13:27 93 H 98 10/31/21 13:22 97.9 F 89 20 96 10/31/21 13:21 84 118/65 10/31/21 13:17 85 98 10/31/21 13:12 83 97 10/31/21 13:07 80 126/72 96 10/31/21 13:02 75 96 10/31/21 12:57 78 96 10/31/21 12:52 78 96 10/31/21 12:51 82 130/69 10/31/21 12:47 83 95 10/31/21 12:42 83 97 10/31/21 12:37 85 128/72 96 10/31/21 12:32 85 96 10/31/21 12:30 18 10/31/21 12:27 89 98 10/31/21 12:22 93 H 97 10/31/21 12:21 81 128/62 10/31/21 12:17 80 98 10/31/21 12:12 82 97 10/31/21 12:07 96 H 95 10/31/21 12:06 86 127/62 10/31/21 12:02 86 95 10/31/21 11:57 86 95 10/31/21 11:52 81 96 10/31/21 11:51 82 128/65 10/31/21 11:47 90 97 10/31/21 11:42 90 96 10/31/21 11:37 79 124/60 96 10/31/21 11:32 97.9 F 84 96 10/31/21 11:30 20 10/31/21 11:27 87 96 10/31/21 11:22 95 H 96 10/31/21 11:21 102 H 134/71 10/31/21 11:17 97 H 95 10/31/21 11:12 96 H 95 10/31/21 11:07 109 H 137/75 96 10/31/21 11:02 104 H 97 10/31/21 10:57 108 H 97 10/31/21 10:52 97 H 131/75 95 10/31/21 10:47 103 H 94 10/31/21 10:42 102 H 95 10/31/21 10:37 100 H 95 10/31/21 10:36 103 H 130/69 10/31/21 10:32 108 H 95 10/31/21 10:30 20 10/31/21 10:27 102 H 94 10/31/21 10:22 100 H 95 10/31/21 10:21 97 H 138/70 10/31/21 10:17 101 H 95 10/31/21 10:12 107 H 95 10/31/21 10:07 100 H 96 10/31/21 10:06 101 H 138/75 10/31/21 10:02 98 H 97 10/31/21 09:57 102 H 96 10/31/21 09:52 102 H 97 10/31/21 09:51 111 H 144/79 H 10/31/21 09:47 111 H 97 10/31/21 09:42 103 H 95 10/31/21 09:37 103 H 95 10/31/21 09:36 105 H 140/76 10/31/21 09:32 107 H 97 10/31/21 09:30 98.1 F 20 10/31/21 09:27 105 H 96 10/31/21 09:22 102 H 96 10/31/21 09:21 108 H 131/76 10/31/21 09:17 112 H 96 10/31/21 09:12 113 H 97 10/31/21 09:07 104 H 97 10/31/21 09:06 106 H 141/81 H 10/31/21 09:02 106 H 97 10/31/21 08:57 106 H 98 10/31/21 08:52 122 H 98 10/31/21 08:51 111 H 143/84 H 10/31/21 08:47 112 H 98 10/31/21 08:42 112 H 96 10/31/21 08:37 115 H 98 10/31/21 08:36 112 H 157/85 H 10/31/21 08:32 118 H 97 10/31/21 08:30 20 10/31/21 08:27 111 H 98 10/31/21 08:22 111 H 98 10/31/21 08:21 111 H 144/87 H 10/31/21 08:17 117 H 97 10/31/21 08:12 116 H 98 10/31/21 08:07 119 H 97 10/31/21 08:06 116 H 144/84 H 10/31/21 08:02 113 H 98 10/31/21 07:57 110 H 97 10/31/21 07:52 113 H 98 10/31/21 07:51 117 H 137/75 10/31/21 07:47 119 H 98 10/31/21 07:42 110 H 97 10/31/21 07:37 105 H 97 10/31/21 07:36 107 H 150/86 H 10/31/21 07:32 107 H 97 10/31/21 07:30 98.2 F 20 10/31/21 07:27 114 H 98 10/31/21 07:22 104 H 98 10/31/21 07:21 107 H 144/84 H 10/31/21 07:17 111 H 98 10/31/21 07:12 114 H 98 10/31/21 07:07 126 H 142/86 H 98 10/31/21 07:02 103 H 96 10/31/21 07:00 16 10/31/21 06:57 103 H 95 10/31/21 06:52 105 H 96 10/31/21 06:51 102 H 144/79 H 10/31/21 06:47 103 H 96 Coding Level of Care Code None Diagnoses Pre-eclampsia, severe, third trimester O14.13
[2021-10-31] MEDS ORDERED: ONDANSETRON INJ 2 MG/ML 2 ML VIAL ONE (18:52)
[2021-10-31] MEDS ORDERED: LIDOCAINE 2%/EPINEPHRINE 1:200,000 20 ML SDV ONE (18:53)
[2021-10-31] MEDS ORDERED: PHENYLEPHRINE 100MCG/ML 5ML SYR ONE (18:53)
[2021-10-31] MEDS ORDERED: MoRPHine SULFATE PF 1 MG/ML 10 ML AMP/VIAL ONE (18:53)
[2021-10-31] MEDS ORDERED: LACTATED RINGER'S 1,000 ML IV SCH ×2 (19:00→20:39)
[2021-10-31] MEDS ORDERED: CITRIC ACID/SODIUM CITRATE 15 ML UDC PO SCH (19:00)
[2021-10-31] MEDS ORDERED: MoRPHine SULFATE 2 MG/ML CARP IV PRN (19:59)
[2021-10-31] MEDS ORDERED: MoRPHine SULFATE PF 1 MG/ML 10 ML AMP/VIAL EPI ONE (19:59)
[2021-10-31] MEDS ORDERED: KETOROLAC 30 MG/ML VIAL IV PRN (19:59)
[2021-10-31] MEDS ORDERED: LACTATED RINGER'S 500 ML IV PRN (19:59)
[2021-10-31] MEDS ORDERED: NALOXONE HCL 0.08 MG in SYRINGE 1.8 ML IV PRN (19:59)
[2021-10-31] MEDS ORDERED: NO NARCOTICS OR SEDATIVES SCH (20:00)
[2021-10-31] MEDS ORDERED: SODIUM CHLORIDE 0.9% 1000ML 1,000 ML IV SCH (20:00)
[2021-10-31] MEDS ORDERED: DC INTRASPINAL MORPHINE SCH (20:00)
--- NOTE | 2021-10-31 20:31 | Anesthesia Procedure Note ---
Date of Service October 31, 2021 Anesthesia Post Epidural Note Vital Signs Vital Signs: Temp Pulse Resp BP Pulse Ox 36.7 C 99 H 18 135/63 97 10/31/21 17:27 10/31/21 20:28 10/31/21 17:30 10/31/21 20:27 10/31/21 20:28 Notes Mental Status: alert / awake / arousable and participated in evaluation Patient Amnestic to Procedure: No Nausea / Vomiting: adequately controlled Pain: adequately controlled Airway Patency, RR, SpO2: stable & adequate BP & HR: stable & adequate Hydration State: stable & adequate Neuraxial Anesthesia: was administered and sensory block is resolving Anesthetic Complications: no major complications apparent and Pt Satisfied with anesthetic care Epidural: Removed without complications and With tip intact
--- NOTE | 2021-10-31 20:32 | Anesthesiology Progress Note ---
Date of Service October 31, 2021 Anesthesia Post Procedure Vital Signs Vital Signs: Temp Pulse Resp BP Pulse Ox 10/31/21 20:28 99 H 97 10/31/21 20:27 94 H 135/63 10/31/21 19:12 110 H 97 10/31/21 19:07 106 H 97 10/31/21 19:06 104 H 148/75 H 10/31/21 19:02 111 H 97 10/31/21 18:57 109 H 98 10/31/21 18:52 107 H 137/81 96 10/31/21 18:47 112 H 97 10/31/21 18:42 108 H 97 10/31/21 18:37 108 H 98 10/31/21 18:36 109 H 159/88 H 10/31/21 18:32 110 H 96 10/31/21 18:27 115 H 97 10/31/21 18:22 105 H 99 10/31/21 18:17 105 H 95 10/31/21 18:12 89 97 10/31/21 18:07 93 H 98 10/31/21 18:06 100 H 140/75 10/31/21 18:02 105 H 95 10/31/21 17:57 92 H 95 10/31/21 17:52 94 H 97 10/31/21 17:51 113 H 109/85 10/31/21 17:47 110 H 98 10/31/21 17:42 98 H 93 10/31/21 17:37 101 H 93 10/31/21 17:36 99 H 147/69 H 10/31/21 17:32 97 H 94 10/31/21 17:30 18 10/31/21 17:27 36.7 C 109 H 96 10/31/21 17:22 100 H 95 10/31/21 17:21 96 H 144/70 H 10/31/21 17:20 94 H 89 L 10/31/21 17:17 96 H 93 10/31/21 17:12 95 H 95 10/31/21 17:07 101 H 97 10/31/21 17:06 100 H 138/74 10/31/21 17:02 115 H 97 10/31/21 16:57 115 H 99 10/31/21 16:52 99 H 136/75 94 10/31/21 16:47 107 H 94 10/31/21 16:42 97 H 95 10/31/21 16:37 109 H 99 10/31/21 16:36 98 H 139/72 10/31/21 16:32 104 H 95 10/31/21 16:27 100 H 96 10/31/21 16:22 108 H 99 10/31/21 16:21 100 H 142/74 H 10/31/21 16:17 97 H 93 10/31/21 16:12 107 H 97 10/31/21 16:07 109 H 99 10/31/21 16:06 106 H 142/78 H 10/31/21 16:02 103 H 97 10/31/21 15:57 105 H 97 10/31/21 15:52 105 H 124/63 97 10/31/21 15:47 95 H 97 10/31/21 15:42 96 H 95 10/31/21 15:37 109 H 95 10/31/21 15:36 99 H 132/66 10/31/21 15:32 93 H 96 10/31/21 15:27 98 H 95 10/31/21 15:24 36.8 C 10/31/21 15:22 96 H 95 10/31/21 15:21 94 H 135/71 10/31/21 15:17 97 H 96 10/31/21 15:12 111 H 97 10/31/21 15:07 100 H 94 10/31/21 15:06 95 H 135/70 10/31/21 15:02 98 H 93 10/31/21 14:57 92 H 95 10/31/21 14:52 102 H 130/78 97 10/31/21 14:47 93 H 94 10/31/21 14:42 91 H 95 10/31/21 14:37 89 96 10/31/21 14:36 96 H 130/70 10/31/21 14:32 97 H 96 10/31/21 14:30 18 10/31/21 14:27 101 H 95 10/31/21 14:22 99 H 134/77 94 10/31/21 14:17 103 H 94 10/31/21 14:12 101 H 99 10/31/21 14:07 107 H 136/79 95 10/31/21 14:02 91 H 95 10/31/21 13:57 93 H 97 10/31/21 13:52 98 H 131/75 100 10/31/21 13:47 92 H 99 10/31/21 13:42 91 H 95 10/31/21 13:37 90 95 10/31/21 13:36 98 H 125/72 10/31/21 13:32 90 97 10/31/21 13:30 20 10/31/21 13:27 93 H 98 10/31/21 13:22 36.6 C 89 20 96 10/31/21 13:21 84 118/65 10/31/21 13:17 85 98 10/31/21 13:12 83 97 10/31/21 13:07 80 126/72 96 10/31/21 13:02 75 96 10/31/21 12:57 78 96 10/31/21 12:52 78 96 10/31/21 12:51 82 130/69 10/31/21 12:47 83 95 10/31/21 12:42 83 97 10/31/21 12:37 85 128/72 96 10/31/21 12:32 85 96 10/31/21 12:30 18 10/31/21 12:27 89 98 10/31/21 12:22 93 H 97 10/31/21 12:21 81 128/62 10/31/21 12:17 80 98 10/31/21 12:12 82 97 10/31/21 12:07 96 H 95 10/31/21 12:06 86 127/62 10/31/21 12:02 86 95 10/31/21 11:57 86 95 10/31/21 11:52 81 96 10/31/21 11:51 82 128/65 10/31/21 11:47 90 97 10/31/21 11:42 90 96 10/31/21 11:37 79 124/60 96 10/31/21 11:32 36.6 C 84 96 10/31/21 11:30 20 10/31/21 11:27 87 96 10/31/21 11:22 95 H 96 10/31/21 11:21 102 H 134/71 10/31/21 11:17 97 H 95 10/31/21 11:12 96 H 95 10/31/21 11:07 109 H 137/75 96 10/31/21 11:02 104 H 97 10/31/21 10:57 108 H 97 10/31/21 10:52 97 H 131/75 95 10/31/21 10:47 103 H 94 10/31/21 10:42 102 H 95 10/31/21 10:37 100 H 95 10/31/21 10:36 103 H 130/69 10/31/21 10:32 108 H 95 10/31/21 10:30 20 10/31/21 10:27 102 H 94 10/31/21 10:22 100 H 95 10/31/21 10:21 97 H 138/70 10/31/21 10:17 101 H 95 10/31/21 10:12 107 H 95 10/31/21 10:07 100 H 96 10/31/21 10:06 101 H 138/75 10/31/21 10:02 98 H 97 10/31/21 09:57 102 H 96 10/31/21 09:52 102 H 97 10/31/21 09:51 111 H 144/79 H 10/31/21 09:47 111 H 97 10/31/21 09:42 103 H 95 10/31/21 09:37 103 H 95 10/31/21 09:36 105 H 140/76 10/31/21 09:32 107 H 97 10/31/21 09:30 36.7 C 20 10/31/21 09:27 105 H 96 10/31/21 09:22 102 H 96 10/31/21 09:21 108 H 131/76 10/31/21 09:17 112 H 96 10/31/21 09:12 113 H 97 10/31/21 09:07 104 H 97 10/31/21 09:06 106 H 141/81 H 10/31/21 09:02 106 H 97 10/31/21 08:57 106 H 98 10/31/21 08:52 122 H 98 10/31/21 08:51 111 H 143/84 H 10/31/21 08:47 112 H 98 10/31/21 08:42 112 H 96 10/31/21 08:37 115 H 98 10/31/21 08:36 112 H 157/85 H 10/31/21 08:32 118 H 97 10/31/21 08:30 20 10/31/21 08:27 111 H 98 10/31/21 08:22 111 H 98 10/31/21 08:21 111 H 144/87 H 10/31/21 08:17 117 H 97 10/31/21 08:12 116 H 98 10/31/21 08:07 119 H 97 10/31/21 08:06 116 H 144/84 H 10/31/21 08:02 113 H 98 10/31/21 07:57 110 H 97 10/31/21 07:52 113 H 98 10/31/21 07:51 117 H 137/75 10/31/21 07:47 119 H 98 10/31/21 07:42 110 H 97 10/31/21 07:37 105 H 97 10/31/21 07:36 107 H 150/86 H 10/31/21 07:32 107 H 97 10/31/21 07:30 36.8 C 20 10/31/21 07:27 114 H 98 10/31/21 07:22 104 H 98 10/31/21 07:21 107 H 144/84 H 10/31/21 07:17 111 H 98 10/31/21 07:12 114 H 98 10/31/21 07:07 126 H 142/86 H 98 10/31/21 07:02 103 H 96 10/31/21 07:00 16 10/31/21 06:57 103 H 95 10/31/21 06:52 105 H 96 10/31/21 06:51 102 H 144/79 H 10/31/21 06:47 103 H 96 10/31/21 06:42 104 H 96 10/31/21 06:37 98 H 96 10/31/21 06:36 100 H 143/75 H 10/31/21 06:32 98 H 96 10/31/21 06:30 16 10/31/21 06:27 98 H 97 10/31/21 06:25 16 10/31/21 06:22 96 H 136/74 98 10/31/21 06:21 101 H 87 L 10/31/21 06:17 83 96 10/31/21 06:13 81 92 10/31/21 06:12 79 96 10/31/21 06:10 36.7 C 10/31/21 06:07 91 H 96 10/31/21 06:06 94 H 137/67 10/31/21 06:02 95 H 96 10/31/21 06:00 16 10/31/21 05:57 96 H 94 10/31/21 05:52 91 H 96 10/31/21 05:51 95 H 137/73 10/31/21 05:47 93 H 97 10/31/21 05:42 99 H 98 10/31/21 05:37 97 H 96 10/31/21 05:36 100 H 138/68 10/31/21 05:32 97 H 96 10/31/21 05:30 16 10/31/21 05:27 102 H 95 10/31/21 05:22 94 H 135/70 97 10/31/21 05:17 97 H 95 10/31/21 05:13 97 H 94 10/31/21 05:12 97 H 95 10/31/21 05:07 92 H 96 10/31/21 05:06 91 H 126/62 10/31/21 05:02 94 H 96 10/31/21 04:57 92 H 96 10/31/21 04:52 93 H 96 10/31/21 04:51 96 H 121/61 10/31/21 04:47 98 H 96 10/31/21 04:42 93 H 96 10/31/21 04:37 86 96 10/31/21 04:36 86 106/56 L 10/31/21 04:32 87 96 10/31/21 04:31 87 94 10/31/21 04:30 16 10/31/21 04:27 86 97 10/31/21 04:22 86 96 10/31/21 04:21 91 H 117/58 L 10/31/21 04:17 88 96 10/31/21 04:15 16 10/31/21 04:12 86 95 10/31/21 04:07 85 96 10/31/21 04:05 36.6 C 86 16 117/60 10/31/21 04:02 81 96 10/31/21 04:00 78 16 118/62 10/31/21 03:57 77 98 10/31/21 03:56 83 18 115/58 L 10/31/21 03:52 69 100 10/31/21 03:51 81 16 118/58 L 10/31/21 03:47 60 100 10/31/21 03:45 75 18 102/57 L 10/31/21 03:42 66 16 98/54 L 100 10/31/21 03:40 65 93 10/31/21 03:37 85 98 10/31/21 03:36 68 16 103/56 L 10/31/21 03:32 49 L 97 10/31/21 03:30 64 16 116/62 10/31/21 03:27 64 115/56 L 98 10/31/21 03:26 59 L 115/58 L 10/31/21 03:23 100 H 18 138/74 10/31/21 03:22 89 97 10/31/21 03:20 88 142/77 H 10/31/21 03:17 73 97 10/31/21 03:12 55 L 98 10/31/21 03:07 77 98 10/31/21 03:02 95 H 128/70 97 10/31/21 02:57 84 98 10/31/21 02:52 87 95 10/31/21 02:47 71 117/64 96 10/31/21 02:42 61 97 10/31/21 02:37 97 H 96 10/31/21 02:32 99 H 133/85 96 10/31/21 02:29 99 H 93 10/31/21 02:27 101 H 96 10/31/21 02:23 89 92 10/31/21 02:22 86 94 10/31/21 02:21 36.6 C 18 10/31/21 02:18 104 H 132/87 10/31/21 02:17 97 H 97 10/31/21 02:12 98 H 98 10/31/21 02:07 97 H 97 10/31/21 02:04 101 H 164/85 H 10/31/21 02:02 104 H 98 10/31/21 01:57 98 H 97 10/31/21 01:52 97 H 98 10/31/21 01:47 103 H 152/79 H 97 10/31/21 01:42 105 H 97 10/31/21 01:37 100 H 98 10/31/21 01:32 104 H 20 164/88 H 98 10/31/21 01:27 99 H 98 10/31/21 01:22 97 H 98 10/31/21 01:17 104 H 143/74 H 97 10/31/21 01:12 110 H 97 10/31/21 01:07 101 H 97 10/31/21 01:02 115 H 142/75 H 97 10/31/21 00:57 106 H 96 10/31/21 00:52 100 H 95 10/31/21 00:47 102 H 147/80 H 96 10/31/21 00:42 103 H 96 10/31/21 00:37 106 H 98 10/31/21 00:35 18 10/31/21 00:32 106 H 96 10/31/21 00:30 100 H 136/79 10/31/21 00:27 102 H 96 10/31/21 00:24 96 H 135/76 10/31/21 00:22 104 H 97 10/31/21 00:19 91 H 134/74 10/31/21 00:13 103 H 142/80 H 10/30/21 23:47 95 H 169/86 H 10/30/21 23:16 91 H 161/85 H 10/30/21 22:47 36.6 C 90 18 164/87 H 10/30/21 21:54 105 H 157/104 H 10/30/21 21:25 100 H 143/83 H 10/30/21 20:54 93 H 145/85 H Transfer of Care Handoff Completed per policy Notes Mental Status: alert / awake / arousable and participated in evaluation Patient Amnestic to Procedure: No Nausea / Vomiting: adequately controlled Pain: adequately controlled Airway Patency, RR, SpO2: stable & adequate BP & HR: stable & adequate Hydration State: stable & adequate Neuraxial Anesthesia: was administered and sensory block is resolving Anesthetic Complications: no major complications apparent and Pt Satisfied with anesthetic care
--- NOTE | 2021-10-31 20:34 | Operative Report ---
PG Post Operative Report Pre & Post Diagnosis Operation Date: 10/31/21 19:05 Pre-Op Diagnosis: [facility] @ 39w3d Severe Preeclampsia Induction of Labor Failure to Progress Post-Op Diagnosis: Same I identified the patient and participated in the time-out.: Yes Procedure Operation Date: 10/31/21 19:05 Actual Procedures Primary Low Transverse Section Surgeon Lanie Canseco MD Barrel Scraper Michelle Estimated Blood Loss 500 Findings Consistent with Post-Op Diagnosis Specimens Cord blood Placenta Anesthesia Type L&D Only Epidural Exists Complications none Disposition Accompanied Patient To Recovery: Yes Description of Procedure The patient was placed operating table in the supine position with a leftward tilt. She was prepped and draped in standard sterile fashion. The anesthetic was tested and found to be adequate. A time-out was held, identifying correct patient, procedure, positioning and preoperative antibiotics. There were no concerns. A Pfannenstiel skin incision was made with a knife and taken down to the underlying layer of fascia. The fascia was incised in the midline with the knife and taken out laterally with scissors. The superior edge of the fascial incision was grasped, elevated and dissected off the underlying rectus both superiorly and inferiorly. The muscles were bluntly in the midline. The peritoneum was entered bluntly. The incision was then stretched. The bladder retractor was placed. The vesicouterine peritoneum was identified, entered with scissors and taken out laterally with scissors. The bladder flap was created digitally. A hysterotomy incision was created transversely in the lower uterine segment, final entry being accomplished in a blunt manner with the kohinoor operator's fingers. Clear amniotic fluid was encountered. The kohinoor operator's hand was used to elevate the head to the hysterotomy. The head was delivered using mild fundal pressure, and the shoulders and body followed without difficulty. The cord was clamped and cut and the was then handed off to the awaiting head orthopedic team physician. Cord blood was obtained. Of note, a double true knot was present in the cord. The placenta was Manually extracted. Some membrane was difficult to remove from the uterus even with laparotomy sponges and ring forceps, so a Gold curette was used to scrape the uterine cavity, which loosened the remaining large piece of membrane. This was then extracted in one large sheet with gentle traction. The uterus was exteriorized and cleared of all clot and debris with moistened laparotomy sponges. The hysterotomy incision was repaired in two layers, the first in a running locked layer, the second in an imbricating layer. The ovaries and tubes were seen to be normal bilaterally. The uterus was gently replaced in the abdomen, and the gutters were cleared of clot and debris. A final inspection of the hysterotomy revealed good hemostasis. The rectus muscles were allowed to reapproximate naturally. The fascia was then reapproximated with 1 Vicryl in a running nonlocked manner. The fascia was examined and found to be free of defect following closure. The subcutaneous tissue was copiously irrigated and reapproximated with 0-chromic, then the skin edges were closed with 4-0 monocryl in a subcuticular fashion. A dermabond dressing was applied. The naik was found to be draining clear yellow urine at completion of the procedure. I attest to the content of the Intraoperative Record and any orders documented therein. Any exceptions are noted below. I attest to the content of the Intraoperative Record and any orders documented therein. Any exceptions are noted below. OB Procedure Charges 91480
[2021-10-31] MEDS ORDERED: SENNA 8.6 MG TAB PO PRN (20:39)
[2021-10-31] MEDS ORDERED: DIPHTHERIA/TETANUS/PERTUSSIS 0.5 ML SYR/VIAL IM ONE (20:39)
[2021-10-31] MEDS ORDERED: BENZOCAINE 20% AER SPR 82.5 GM CAN EXT PRN (20:39)
[2021-10-31] MEDS ORDERED: HYDROCORTISONE ACETATE 25 MG SUPP PR PRN (20:39)
[2021-10-31] MEDS ORDERED: MAGNESIUM HYDROXIDE SUSP 30 ML UDC PO PRN (20:39)
[2021-10-31] MEDS ORDERED: OXYTOCIN 30 UNITS in LACTATED RINGER'S 1,000 ML IV SCH (20:39)
[2021-10-31] MEDS: DOCUSATE SODIUM 100 MG CAP PO SCH (21:47)
[2021-10-31] MEDS: SIMETHICONE 80 MG CHEW PO SCH (21:47)
--- NOTE | 2021-11-01 06:06 | Obstetrical Progress Note ---
Date of Service <Tracy GerardoDO - Last Filed: 11/01/21 06:59> November 01, 2021 Assessment & Plan <Tracy Carrillo DO - Last Filed: 11/01/21 06:59> (1) Encounter for care and examination after delivery: 25 yo post op day1 from c/s PMH severe PIH, doing well. -Continue routine post care. -vital signs reviewed and WNL (Tmax 36.8 ) -Blood Type O-, GBS-, Rubella immune -Encourage ambulation, monitor and control pain with Motrin, tylenol PRN, resume regular diet, monitor lochia -encourage breast feeding -hemoglobin 12.1 Day #:: 1 <Lanie Canseco MD - Last Filed: 11/01/21 07:42> (1) Encounter for care and examination after delivery: Subjective <Tracykenny Carrillo DO - Last Filed: 11/01/21 06:59> Ambulation: limited ambulation Voiding: naik catheter in place Passing Gas:: No Diet Tolerance:: regular diet Lochia:: Moderate Feeding Type:: breast feeding Current Pain Level(1-10): 0 Review of Systems Positive nausea dizziness Denies fever, chills, sweats Denies shortness of breath, difficulty breathing, chest pain, palpitations, chest pressure. Denies breast pain. Denies dysuria. Denies headache or changes in vision. Physical Exam <Tracy GerardoDO - Last Filed: 11/01/21 06:59> General: Alert, oriented. No acute distress. Cardiac: Regular rate and rhythm, no murmurs/rubs/gallops. Respiratory: Clear to auscultation bilaterally a/p, no wheezes/rales/rhonchi. No increased work of breathing. Symmetrical chest rise. No respiratory distress. Abdomen: Soft, nontender, nondistended. Bowel sounds present. Uterus: Uterine fundus firm, palpable at umbilicus. Surgical scar clean and healing well. Lower Extremities: No lower extremity edema or swelling. No deep calf pain. Toni's negative bilaterally. Results & Data ([facility]) <Tracy Carrillo DO - Last Filed: 11/01/21 06:59> Vital Signs (Past 12 Hours) Vital Signs Temp Pulse Resp BP Pulse Ox Pulse Ox 11/01/21 06:04 92 H 99 11/01/21 05:59 88 97 11/01/21 05:54 83 97 11/01/21 05:49 87 97 11/01/21 05:44 85 97 11/01/21 05:39 92 H 99 11/01/21 05:34 95 H 16 125/77 100 100 11/01/21 05:29 81 97 11/01/21 05:24 84 96 11/01/21 05:19 84 96 11/01/21 05:14 84 95 11/01/21 05:09 91 H 96 11/01/21 05:04 86 96 11/01/21 04:59 84 96 11/01/21 04:54 85 96 11/01/21 04:49 91 H 95 11/01/21 04:44 86 95 11/01/21 04:39 80 94 11/01/21 04:34 97 H 133/70 97 11/01/21 04:33 16 97 11/01/21 04:29 82 97 11/01/21 04:24 78 98 11/01/21 04:19 85 96 11/01/21 04:14 86 95 11/01/21 04:09 109 H 98 11/01/21 04:04 81 96 11/01/21 03:59 79 95 11/01/21 03:54 88 96 11/01/21 03:49 81 96 11/01/21 03:44 81 95 11/01/21 03:39 79 96 11/01/21 03:34 91 H 110/61 96 11/01/21 03:30 18 96 11/01/21 03:29 79 96 11/01/21 03:24 80 96 11/01/21 03:19 81 96 11/01/21 03:14 84 98 11/01/21 03:09 82 99 11/01/21 03:04 82 98 11/01/21 02:59 79 97 11/01/21 02:54 78 96 11/01/21 02:49 77 97 11/01/21 02:44 76 100 11/01/21 02:39 86 99 11/01/21 02:35 36.5 C 18 100 11/01/21 02:34 83 127/67 97 11/01/21 02:30 18 100 11/01/21 02:29 92 H 96 11/01/21 02:24 86 100 11/01/21 02:19 77 97 11/01/21 02:14 73 97 11/01/21 02:09 77 100 11/01/21 02:04 73 99 11/01/21 01:59 82 98 11/01/21 01:54 89 99 11/01/21 01:49 79 97 11/01/21 01:44 77 97 11/01/21 01:39 83 98 11/01/21 01:35 20 100 11/01/21 01:34 80 139/83 99 11/01/21 01:29 79 97 11/01/21 01:24 79 96 11/01/21 01:19 99 H 99 11/01/21 01:14 88 97 11/01/21 01:09 82 97 11/01/21 01:04 79 98 11/01/21 00:59 88 100 11/01/21 00:54 80 97 11/01/21 00:49 77 97 11/01/21 00:44 80 99 11/01/21 00:39 94 H 100 11/01/21 00:34 88 133/71 99 11/01/21 00:30 16 98 11/01/21 00:29 96 H 100 11/01/21 00:24 82 96 11/01/21 00:19 81 96 11/01/21 00:14 97 H 97 11/01/21 00:09 79 96 11/01/21 00:04 81 96 10/31/21 23:59 81 95 10/31/21 23:58 82 91 10/31/21 23:54 94 H 96 10/31/21 23:51 88 125/67 10/31/21 23:49 96 H 98 10/31/21 23:44 122 H 97 10/31/21 23:39 80 92 10/31/21 23:38 81 91 10/31/21 23:34 84 92 10/31/21 23:32 81 90 10/31/21 23:30 15 97 10/31/21 23:29 98 H 98 10/31/21 23:26 99 H 144/75 H 10/31/21 23:24 108 H 98 10/31/21 23:19 92 H 92 10/31/21 23:14 90 93 10/31/21 23:09 89 93 10/31/21 23:08 91 H 91 10/31/21 23:04 90 92 10/31/21 23:02 91 H 91 10/31/21 22:59 90 92 10/31/21 22:54 93 H 91 10/31/21 22:50 93 H 90 10/31/21 22:49 92 H 92 10/31/21 22:44 107 H 96 10/31/21 22:41 95 H 91 10/31/21 22:39 94 H 95 10/31/21 22:34 94 H 126/58 L 92 10/31/21 22:30 19 10/31/21 22:29 96 H 95 10/31/21 22:27 95 H 93 10/31/21 22:24 103 H 96 10/31/21 22:21 97 H 93 10/31/21 22:19 111 H 123/72 95 10/31/21 22:14 111 H 96 10/31/21 22:13 110 H 94 10/31/21 22:09 113 H 97 10/31/21 22:04 111 H 138/74 95 10/31/21 22:00 117 H 16 94 10/31/21 21:59 115 H 95 10/31/21 21:54 110 H 95 10/31/21 21:49 114 H 137/71 95 10/31/21 21:47 111 H 133/71 10/31/21 21:44 116 H 96 10/31/21 21:41 115 H 93 10/31/21 21:39 114 H 95 10/31/21 21:34 117 H 162/75 H 95 10/31/21 21:30 36.9 C 16 10/31/21 21:29 117 H 94 10/31/21 21:24 120 H 95 10/31/21 21:21 16 10/31/21 21:19 118 H 96 10/31/21 21:18 116 H 148/76 H 10/31/21 21:14 116 H 96 10/31/21 21:13 115 H 154/80 H 10/31/21 21:10 16 10/31/21 21:09 114 H 95 10/31/21 21:08 111 H 156/80 H 10/31/21 21:04 113 H 96 10/31/21 21:03 110 H 150/75 H 10/31/21 21:00 16 10/31/21 20:59 111 H 96 10/31/21 20:58 110 H 147/78 H 10/31/21 20:54 99 H 96 10/31/21 20:53 102 H 139/72 10/31/21 20:50 16 10/31/21 20:49 100 H 98 10/31/21 20:48 102 H 149/71 H 10/31/21 20:44 97 H 97 10/31/21 20:43 95 H 138/68 10/31/21 20:40 16 10/31/21 20:39 91 H 96 10/31/21 20:38 96 H 137/65 10/31/21 20:34 94 H 97 10/31/21 20:30 36.7 C 16 99 10/31/21 20:28 99 H 97 10/31/21 20:27 94 H 135/63 10/31/21 19:15 16 10/31/21 19:12 110 H 97 10/31/21 19:07 106 H 97 10/31/21 19:06 104 H 148/75 H 10/31/21 19:02 111 H 97 10/31/21 18:57 109 H 98 10/31/21 18:52 107 H 137/81 96 10/31/21 18:47 112 H 97 10/31/21 18:42 108 H 97 10/31/21 18:37 108 H 98 10/31/21 18:36 109 H 159/88 H 10/31/21 18:32 110 H 96 10/31/21 18:27 115 H 97 10/31/21 18:22 105 H 99 10/31/21 18:17 105 H 95 10/31/21 18:12 89 97 10/31/21 18:07 93 H 98 10/31/21 18:06 100 H 140/75 <Lanie Canseco MD - Last Filed: 11/01/21 07:42> Co-Signing Physician Notes Resident Physician Supervision Note: I interviewed and examined the patient. Discussed with Dr. Carrillo and agree with findings and plan as documented in the note. Any exceptions or clarifications are listed here: Patient has a *current* diagnosis of Severe Preeclampsia, not a PMHx thereof. She is on 24hours of magnesium infusion at this time, to be completed at around 7pm tonight. Naik to remain for I/O during mag therapy. Currently without SOLER, RUQ pain or edema changes. Does have N/V and dizziness which patient attributes to narcotic medications, as she has had these difficulties with narcotics after other surgeries; she plans to decline all future narcotics. Discussed pain management expectations with her this morning. She is passing gas and has a soft abdomen with appropriate fundus and incision exam this morning for me, so I do not think n/v are likely r/t surgical misadventure. Documented By: Lanie Canseco MD, FACOG Resident Activity Tracking <Tracy Carrillo, - Last Filed: 11/01/21 06:59> Resident Involvement: Resident Care Provided Care Provided: Adult Hospital Medicine and OB Delivery
[2021-11-01 06:30] LABS: Hematocrit (blood only) 28.9 % (37-47); Hemoglobin 9.9 g/dL (12.0-16.0); Mean Corpuscular Hemoglobin 30.1 pg (25-34); Mean Corpuscular Hgb Conc 34.3 g/dL (32-36); Mean Corpuscular Volume 87.8 fL (80-100); Mean Platelet Volume 10.3 fL (7.4-10.4); Platelet Count 176 K/uL (130-400); RDW Coefficient of Variation 13.5 % (11.5-14.5); RDW Standard Deviation 43.2 fL (36.4-46.3); Red Blood Count 3.29 M/uL (4.2-5.4); White Blood Count 25.51 K/uL (4.8-10.8)
[2021-11-01 06:50] LABS: Basophils # (auto) 0.03 K/uL (0-0.2); Basophils % (auto) 0.1 %; Immature Granulocytes % (auto) 0.4 %; Lymphocytes # (auto) 2.04 K/uL (1.2-3.4); Monocytes # (auto) 1.39 K/uL (0.11-0.59); Monocytes % (auto) 5.4 %; Neutrophils # (auto) 21.95 K/uL (1.4-6.5); Neutrophils % (auto) 86.1 %; Polychromasia 1+
[2021-11-01] MEDS: DOCUSATE SODIUM 100 MG CAP PO SCH ×2 (09:16→21:35)
[2021-11-01] MEDS: FERROUS SULFATE 325 MG TAB PO SCH (09:17)
[2021-11-01] MEDS: SIMETHICONE 80 MG CHEW PO SCH ×4 (09:17→21:35)
[2021-11-01] MEDS: PRENATAL VITAMIN 1 TAB PO SCH (09:17)
[2021-11-01] MEDS: ENOXAPARIN INJ 40 MG/0.4 ML SYR SQ SCH (09:29)
[2021-11-01 10:01] LABS: Albumin Globulin Ratio 1.2 (0.9-2); Albumin Level 2.7 gm/dl (3.4-5.0); BUN Creatinine Ratio 25.9 (10-20); Bilirubin,Total 0.3 mg/dl (0.2-1.0); Calcium 6.9 mg/dl (8.5-10.1); Est GFR (African American) 146.4 ml/min; Est GFR (Non-African American) 126.3 ml/min; Globulin 2.3 gm/dl (2.5-4.0)
[2021-11-01] MEDS: MAGNESIUM SULFATE / WTR 40 GM/1,000 ML BAG IV SCH (13:37)
[2021-11-01] MEDS ORDERED: KETOROLAC 30 MG/ML VIAL IV PRN (14:00)
[2021-11-01] MEDS ORDERED: oxyCODONE/ACETAMINOPHEN 5mg/325mg TAB PO PRN (14:00)
[2021-11-01] MEDS ORDERED: diphenhydrAMINE Capsule 25 MG CAP PO PRN (14:00)
[2021-11-01] MEDS ORDERED: PROMETHAZINE HCL 25 MG in SODIUM CHLORIDE 0.9% 50 ML IV PRN (14:00)
[2021-11-01] MEDS ORDERED: IBUPROFEN 600 MG TAB PO PRN (14:00)
[2021-11-01] MEDS ORDERED: diphenhydrAMINE 50 MG/ML VIAL IV PRN (14:00)
[2021-11-01] MEDS ORDERED: MEPERIDINE HCL 50 MG/ML CARP IV PRN (14:00)
[2021-11-01] MEDS ORDERED: ONDANSETRON INJ 2 MG/ML 2 ML VIAL IV PRN (14:00)
[2021-11-01] MEDS ORDERED: ACETAMINOPHEN 325 MG TAB ONE (16:51)
[2021-11-01] MEDS: ACETAMINOPHEN 325 MG TAB PO PRN (23:37)
--- NOTE | 2021-11-02 06:02 | Obstetrical Progress Note ---
Date of Service <Tracy GerardoDO - Last Filed: 11/02/21 07:03> November 02, 2021 Assessment & Plan <Tracy GerardoDO - Last Filed: 11/02/21 07:03> (1) Encounter for care and examination after delivery: 25 yo post op day2 from c/s PMH severe PIH, gHTN, Hx. PE, doing well. -Continue routine post care. -vital signs reviewed and WNL (Tmax 37.1 ) -Blood Type O-, GBS-, Rubella immune -Encourage ambulation, monitor and control pain with Motrin, tylenol PRN, resume regular diet, monitor lochia -encourage breast feeding -hemoglobin 8.6 Day #:: 2 <Virginia Martinez MD - Last Filed: 11/02/21 07:39> (1) Encounter for care and examination after delivery: Subjective <Tracy GerardoDO - Last Filed: 11/02/21 07:03> Ambulation: ambulating normally Voiding: no voiding problems Passing Gas:: Yes Diet Tolerance:: regular diet Lochia:: Small Feeding Type:: breast feeding Current Pain Level(1-10): 0 Review of Systems One headache resolved with motrin Denies fever, chills, sweats Denies shortness of breath, difficulty breathing, chest pain, palpitations, chest pressure. Denies breast pain. Denies dysuria. Denies changes in vision. Physical Exam <Tracy GerardoDO - Last Filed: 11/02/21 07:03> General: Alert, oriented. No acute distress. Cardiac: Regular rate and rhythm, no murmurs/rubs/gallops. Respiratory: Clear to auscultation bilaterally a/p, no wheezes/rales/rhonchi. No increased work of breathing. Symmetrical chest rise. No respiratory distress. Abdomen: Soft, nontender, nondistended. Bowel sounds present. Uterus: Uterine fundus firm, palpable at umbilicus. Surgical scar clean and healing well. Lower Extremities: No lower extremity edema or swelling. No deep calf pain. Toni's negative bilaterally. Results & Data ([facility]) <Tracy Carrillo DO - Last Filed: 11/02/21 07:03> Vital Signs (Past 12 Hours) Vital Signs Temp Pulse Pulse Resp BP BP Pulse Ox 11/02/21 01:15 37.1 C 111 H 18 117/74 96 11/01/21 19:45 36.9 C 106 H 18 134/79 11/01/21 19:25 102 H 98 11/01/21 19:20 109 H 97 11/01/21 19:15 107 H 96 11/01/21 19:10 36.8 C 107 H 18 97 11/01/21 19:05 107 H 97 11/01/21 19:00 112 H 139/66 98 11/01/21 18:55 103 H 93 11/01/21 18:50 113 H 90 11/01/21 18:47 111 H 89 L 11/01/21 18:45 111 H 94 11/01/21 18:40 103 H 95 11/01/21 18:35 100 H 95 11/01/21 18:30 104 H 94 11/01/21 18:25 100 H 95 11/01/21 18:20 100 H 95 11/01/21 18:15 96 H 95 11/01/21 18:10 97 H 95 11/01/21 18:05 97 H 95 <Virginia Martinez MD - Last Filed: 11/02/21 07:39> Co-Signing Physician Notes Resident Physician Supervision Note: I interviewed and examined the patient. Discussed with Dr. Carrillo and agree with findings and plan as documented in the note. Any exceptions or clarifications are listed here: POD2 s/p pLTCS after FTP for IOL PET w/ SF. Finished mag last evening, BPs remain normal and denies s/s PET. VSS, exam benign and wnl. Incision c/d/i. Continue routine postop care. On prophylactic lovenox due to hx PE Documented By: Virginia Martinez MD Resident Activity Tracking <Tracy Carrillo DO - Last Filed: 11/02/21 07:03> Resident Involvement: Resident Care Provided Care Provided: Adult Hospital Medicine and OB Delivery
[2021-11-02 06:08] LABS: Hemoglobin 8.6 g/dL (12.0-16.0)
[2021-11-02] MEDS: ACETAMINOPHEN 325 MG TAB PO PRN ×3 (06:14→19:47)
[2021-11-02] MEDS: ENOXAPARIN INJ 40 MG/0.4 ML SYR SQ SCH (09:20)
[2021-11-02] MEDS: DOCUSATE SODIUM 100 MG CAP PO SCH ×2 (09:21→19:46)
[2021-11-02] MEDS: SIMETHICONE 80 MG CHEW PO SCH ×4 (09:21→19:47)
[2021-11-02] MEDS: PRENATAL VITAMIN 1 TAB PO SCH (09:21)
[2021-11-02] MEDS: FERROUS SULFATE 325 MG TAB PO SCH (09:21)
[2021-11-03] MEDS: ACETAMINOPHEN 325 MG TAB PO PRN ×2 (00:23→05:13)
--- NOTE | 2021-11-03 07:44 | Obstetrical Progress Note ---
Date of Service <Tracy Carrillo DO - Last Filed: 11/03/21 07:44> November 03, 2021 Assessment & Plan <Tracy Carrillo DO - Last Filed: 11/03/21 07:44> (1) Encounter for care and examination after delivery: 25 yo post op day3 from c/s PMH severe PIH, gHTN, Hx. PE, doing well. -Continue routine post care. -vital signs reviewed and WNL (Tmax 37.3 ) -Blood Type O-, GBS-, Rubella immune -Encourage ambulation, monitor and control pain with Motrin, tylenol PRN, resume regular diet, monitor lochia -encourage breast feeding -hemoglobin 8.6 Day #:: 3 <Treasure Barnett MD, FACOG - Last Filed: 11/03/21 07:53> (1) Encounter for care and examination after delivery: Subjective <Tracy Carrillo DO - Last Filed: 11/03/21 07:44> Ambulation: ambulating normally Voiding: no voiding problems Passing Gas:: Yes Diet Tolerance:: regular diet Lochia:: Small Feeding Type:: breast feeding Current Pain Level(1-10): 0 Review of Systems Denies fever, chills, sweats Denies shortness of breath, difficulty breathing, chest pain, palpitations, chest pressure. Denies breast pain. Denies dysuria. Denies headache or changes in vision. Physical Exam <Tracy Carrillo DO - Last Filed: 11/03/21 07:44> General: Alert, oriented. No acute distress. Cardiac: Regular rate and rhythm, no murmurs/rubs/gallops. Respiratory: Clear to auscultation bilaterally a/p, no wheezes/rales/rhonchi. No increased work of breathing. Symmetrical chest rise. No respiratory distress. Abdomen: Soft, nontender, nondistended. Bowel sounds present. Uterus: Uterine fundus firm, palpable at umbilicus. Surgical scar clean and healing well. Lower Extremities: No lower extremity edema or swelling. No deep calf pain. Toni's negative bilaterally. Results & Data ([facility]) <Tracy Carrillo DO - Last Filed: 11/03/21 07:44> Vital Signs (Past 12 Hours) Vital Signs Temp Pulse Resp BP Pulse Ox 04/22/22 00:20 37.3 C 112 H 16 142/89 H 97 <Treasure Barnett MD, FACOG - Last Filed: 11/03/21 07:53> Co-Signing Physician Notes Resident Physician Supervision Note: I interviewed and examined the patient. Discussed with [Name of resident] and agree with findings and plan as documented in the note. Any exceptions or clarifications are listed here: [None] Documented By: Treasure Barnett MD, FACOG Resident Activity Tracking <Tracy Carrillo DO - Last Filed: 11/03/21 07:44> Resident Involvement: Resident Care Provided Care Provided: Adult Hospital Medicine and OB Delivery
[2021-11-03] MEDS: DOCUSATE SODIUM 100 MG CAP PO SCH (09:12)
[2021-11-03] MEDS: PRENATAL VITAMIN 1 TAB PO SCH (09:13)
[2021-11-03] MEDS: FERROUS SULFATE 325 MG TAB PO SCH (09:13)
[2021-11-03] MEDS: ENOXAPARIN INJ 40 MG/0.4 ML SYR SQ SCH (09:14)
[2021-11-03] MEDS: SIMETHICONE 80 MG CHEW PO SCH (09:14)
--- NOTE | 2021-11-04 13:06 | Discharge Summary ---
Date of Service November 04, 2021 Admission HPI Per Admitting Provider 25-year-old at 39w2d gestational age presents for decreased movement. During her evaluation for decreased movement there was noted be reactive NST however blood pressures were noted to be elevated initially in severe range then trended down to a mild range blood pressure elevation. Preeclampsia labs were negative patient denying any preeclampsia symptoms. Discussed the findings of elevated blood pressure at term and recommended the patient stay for induction of labor for gestational hypertension. Patient was agreeable to plan. otherwise complicated by history of pulmonary embolus on OCPs. Patient is planned to continue Lovenox for 6 weeks and has been on heparin since 36 weeks with last dose this morning at 7:00 a.m. OB Labs: F Blood Type O Negative 03/30/21 Antibody Screen NEGATIVE 08/18/21 Hemoglobin 13.0 g/dL (12.0-16.0) 09/29/21 Hematocrit 37.7 % (37-47) 09/29/21 Mean Corpuscular Volume 87.5 fL (80-100) 09/29/21 Platelet Count 284 K/uL (130-400) 09/29/21 Rubella IgG Antibody Immune (Immune) 03/30/21 Rapid Plasma Reagin Nonreactive (Nonreactive) 03/30/21 Hepatitis B Surface Antigen Neg (Neg) 03/30/21 HIV (1&2) Ab and P24 Ag, 4th Gener Neg (Neg) 03/30/21 Glucose 1 Hour 50 gm Load 158 mg/dl (70-130) H 06/02/21 Maternal Serum Alpha Fetoprotein 45.2 ng/mL 06/02/21 OB Optional Labs: Chlamydia trachomatis RNA NOT DETECTED (NOT DETECTED) 03/30/21 Neisseria gonorrhoeae RNA NOT DETECTED (NOT DETECTED) 03/30/21 Thyroid Stimulating Hormone (TSH) 0.921 uIu/ml (0.300-4.500) 04/06/20 Alpha Fetoprotein Triple Screen SEE NOTE 06/02/21 Labs Reviewed: neg cf/sma--[facility] low risk panorama--[facility] Discharge Data Consultations 10/30/21 19:25 Consult Anesthesiology Stat Procedures Performed Operation Date: 10/31/21 19:05 Actual Procedures p Section in LD for failure to progress at 1949 for [facility](Bilateral) - Lanie Canseco MD Hospital Course (1) Encounter for care and examination after delivery: Coding Level of Care Code None Diagnoses Encounter for care and examination after delivery Z39.2
== END 2021-11-03 13:10 | disposition home or self-care (01) | DRG 788 ==
LOC: OPB 17:45 → 4S1 17:47 → 4E2 11-01 20:03